=== PATIENT | male | born 1990 | race Caucasian/White ===

== ENCOUNTER 2018-02-16 19:19 | Emergency (ER) | payer BC, OTHER ==
--- NOTE | 2018-02-16 20:06 | EDM.PDOC ---
ED HPI GENERAL MEDICAL PROBLEM - General Chief Complaint: Upper Extremity Injury/Pain Stated Complaint: LEFT HAND POSSIBLY BROKEN RT HAND PLAYING SOFTBALL Time Seen by Provider: 02/16/18 20:06 - History of Present Illness INITIAL COMMENTS - FREE TEXT/NARRATIVE: 27-year-old male returns emergency room with a injured left hand. Shortly before arrival patient was playing softball and tried to use his left hand to block a rolling ball his hand folded backwards he developed sudden onset hand pain and he did not stop the ball. His hand is tender to use and is started to swell up patient denies any other injury with this incident. Left Hand Pain Score (Numeric/FACES): 7 - Related Data Allergies Allergy/AdvReac Type Severity Reaction Status Date / Time Penicillins Allergy Cannot Verified 02/16/18 19:46 Remember Home Meds: Home Meds valACYclovir [Valtrex] 500 mg PO DAILY 02/16/18 [History] Past Medical History - Past Health History Medical/Surgical History: Denies Medical/Surgical History Social & Family History - Tobacco Use Smoking Status *Q: Never Smoker - Caffeine Use Caffeine Use: Reports: Coffee, Soda, Tea - Recreational Drug Use Recreational Drug Use: No Review of Systems - Review of Systems Review Of Systems: See Below Respiratory: Reports: No Symptoms Cardiovascular: Reports: No Symptoms GI/Abdominal: Reports: No Symptoms ED EXAM, GENERAL - Physical Exam Exam: See Below Exam Limited By: No Limitations General Appearance: Alert, No Apparent Distress Neck: Normal Inspection, Supple, Non-Tender, Full Range of Motion Respiratory/Chest: No Respiratory Distress, Lungs Clear, Normal Breath Sounds Cardiovascular: Normal Peripheral Pulses, Regular Rate, Rhythm, No Edema, No Murmur Extremities: Other (Patient is left-hand show some dorsal swelling over the dorsum of the hand his digits are grossly intact motion of the ring finger and to a lesser degree the patient finger is very uncomfortable. Patient has good range of motion of the wrist except for a causes pain in the hand no snuffbox tenderness. Neurovascular status otherwise intact) Course - Vital Signs Last Recorded V/S: Last Vital Signs Temp 36.7 C 02/16/18 19:43 Pulse 82 02/16/18 19:43 Resp 20 02/16/18 19:43 BP 109/64 02/16/18 19:43 Pulse Ox 96 02/16/18 19:43 - Orders/Labs/Meds Orders: Active Orders 24 hr Category Date Time Status Hand Comp Min 3V Lt [CR] Stat Exams 02/16/18 20:15 Taken - Re-Assessments/Exams Free Text/Narrative Re-Assessment/Exam: 02/17/18 00:01 X-ray of the hand shows a fourth ray metacarpal spiral fracture with mild degree of shortening fairly good alignment case discussed with Dr. Canseco: He recommends splinting with the metacarpal phalangeal joint to 90 the wrist at 45 . I did apply this short arm splint patient is much more comfortable. He will follow-up with local orthopedics this next week Departure - Departure Time of Disposition: 00:02 Disposition: Home, Self-Care 01 Clinical Impression: Fracture, metacarpal shaft - Discharge Information Instructions: Metacarpal Fracture, [id number], Cast or Splint Care, Adult Referrals: Nestor Segura Jr, MD [Primary Care Provider] - Forms: ED Department Discharge Additional Instructions: Return to the emergency room with any questions problems worsening symptoms. Follow-up with Dr. Rudolph today this next week Tuesday or Tuesday [phone] Tylenol or Motrin as needed for discomfort. Keep her arm elevated as much as tolerated ice as needed - My Orders Last 24 Hours: My Active Orders 02/16/18 20:15 Hand Comp Min 3V Lt [CR] Stat - Assessment/Plan Last 24 Hours: My Active Orders 02/16/18 20:15 Hand Comp Min 3V Lt [CR] Stat
--- NOTE | 2018-02-17 10:44 | CR ---
Left hand: Four views of the left hand were obtained. Comparison: No prior study. Fracture is identified within the mid and proximal shaft of the fourth metacarpal. There appears to be articular extension proximally. Minimal displacement is seen. Soft tissue swelling is identified. No additional fracture or other abnormality is identified. Impression: 1. Slightly displaced fracture within the fourth metacarpal as described above. 2. Soft tissue swelling. Diagnostic code #3
== END 2018-02-17 00:09 | disposition home or self-care (01) ==
LOC: JD.ED 19:19
DX: S62.325A Displaced fracture of shaft of fourth metacarpal bone, left hand, initial encounter for closed fracture (principal); Z88.0 Allergy status to penicillin; X58.XXXA Exposure to other specified factors, initial encounter
CPT/HCPCS: 29125; 73130-26-LT; 73130-LT; 99283-25

== ENCOUNTER 2021-07-10 17:52 | Emergency (ER) | payer OTHER ==
--- NOTE | 2021-07-10 19:23 | EDM.PDOC ---
ED HPI GENERAL MEDICAL PROBLEM - General Chief Complaint: Lower Extremity Injury/Pain Stated Complaint: RIGHT ANKLE INJURY Time Seen by Provider: 07/10/21 19:06 Source of Information: Reports: Patient, RN Notes Reviewed - History of Present Illness INITIAL COMMENTS - FREE TEXT/NARRATIVE: 30 yr old male comes in with injury to R foot and ankle. Inversion a short time ago. Pain with wt bearing. Feels OK at rest. Right Ankle Pain Score (Numeric/FACES): 6 - Related Data Allergies Allergy/AdvReac Type Severity Reaction Status Date / Time Penicillins Allergy Cannot Verified 07/10/21 19:11 Remember Home Meds: Home Meds Omeprazole 40 mg PO DAILY 07/10/21 [History] Past Medical History - Past Health History Medical/Surgical History: Denies Medical/Surgical History Gastrointestinal History: Reports: GERD - Infectious Disease History Infectious Disease History: Reports: Novel Coronavirus Social & Family History - Family History Family Medical History: No Pertinent Family History - Tobacco Use Tobacco Use Status *Q: Never Tobacco User Second Hand Smoke Exposure: No - Caffeine Use Caffeine Use: Reports: None - Recreational Drug Use Recreational Drug Use: No Review of Systems - Review of Systems Review Of Systems: See Below Constitutional: Reports: No Symptoms Respiratory: Reports: No Symptoms Cardiovascular: Reports: No Symptoms Musculoskeletal: Reports: Joint Pain Skin: Reports: No Symptoms Neurological: Reports: No Symptoms ED EXAM, GENERAL - Physical Exam Exam: See Below General Appearance: Alert, No Apparent Distress Respiratory/Chest: No Respiratory Distress Extremities: Joint Swelling (tenderness R lateral ankle, medial ankle nontender, swelling and tenderness R proximal, lateral foot), Other (no deformity) Neurological: Alert, Oriented, No Motor/Sensory Deficits Skin Exam: Warm, Dry, Normal Color ED TRAUMA EXTREMITY PROCEDURES - Splinting Right Lower Extremity Splint Site: R short leg Pre-Procedure NV Status: Normal Post-Procedure NV Status: Normal Splint Material: Fiberglass Splint Design: Posterior Applied & Form Fitted By: Provider Provider Post-Splint Application NV Check: NV Status Normal Course - Vital Signs Last Recorded V/S: Last Vital Signs Temp 98.0 F 07/10/21 19:05 Pulse 72 07/10/21 19:05 Resp 16 07/10/21 19:05 BP 142/89 H 07/10/21 19:05 Pulse Ox 98 07/10/21 19:05 - Orders/Labs/Meds Orders: Active Orders 24 hr Category Date Time Status Durable Medical Equipment for Discharge [DME for Oth 07/10/21 19:57 Ordered Discharge] [COMM] Stat - Re-Assessments/Exams Free Text/Narrative Re-Assessment/Exam: 07/10/21 20:38 X rays show small fx base of 5th metatarsal with very mild displacement. Departure - Departure Time of Disposition: 20:45 Disposition: Home, Self-Care 01 Condition: Fair Clinical Impression: Metatarsal fracture Qualifiers: Encounter type: initial encounter Metatarsal bone: fifth Fracture type: closed Fracture alignment: displaced Laterality: right Qualified Code(s): S92.351A - Displaced fracture of fifth metatarsal bone, right foot, initial encounter for closed fracture - Discharge Information Instructions: Metatarsal Fracture Referrals: PCP,None [Primary Care Provider] - Forms: ED Department Discharge Additional Instructions: Fiberglass splint. Ice packs and elevation for swelling. Crutches, no weight bearing for now. Alternate tylenol or ibuprofen as needed. See Dr Rudolph Orthopedist next week, call [phone] for appointment. Sepsis Event Note (ED) - Evaluation Sepsis Screening Result: No Definite Risk - Focused Exam Vital Signs: Vital Signs Temp Pulse Resp BP Pulse Ox 07/10/21 19:05 98.0 F 72 16 142/89 H 98 - My Orders Last 24 Hours: My Active Orders 07/10/21 19:57 Durable Medical Equipment for Discharge [DME for Discharge] [COMM] Stat - Assessment/Plan Last 24 Hours: My Active Orders 07/10/21 19:57 Durable Medical Equipment for Discharge [DME for Discharge] [COMM] Stat
--- NOTE | 2021-07-10 20:05 | CR ---
Right foot: 4 views of the right foot were obtained. Comparison: No prior foot exam is available. Small fracture is seen within the base of the fifth metatarsal. Minimal displacement is noted. Joint spaces are preserved. Soft tissue swelling is present. Impression: 1. Small fracture involving the base of the fifth metatarsal. 2. Soft tissue swelling. Diagnostic code #3
--- NOTE | 2021-07-10 20:05 | CR ---
Right ankle: 4 views of the right ankle were obtained. Comparison: No prior ankle study is available. Ankle mortise is symmetric. Mild soft tissue swelling is noted. Small fracture is noted off the base of the fifth metatarsal which is slightly displaced. No additional fracture or other bony abnormality is appreciated. Impression: 1. Soft tissue swelling. 2. Small fracture involving the base of the fifth metatarsal which is mildly displaced. 3. No additional abnormality is appreciated within the right ankle. Diagnostic code #3
== END 2021-07-10 21:00 | disposition home or self-care (01) ==
LOC: JD.ED 17:52
DX: S92.351A Displaced fracture of fifth metatarsal bone, right foot, initial encounter for closed fracture (principal); K21.9 Gastro-esophageal reflux disease without esophagitis; Z79.899 Other long term (current) drug therapy; Z88.0 Allergy status to penicillin; X50.1XXA Overexertion from prolonged static or awkward postures, initial encounter
CPT/HCPCS: 29515; 73610-26-RT; 73610-RT; 73630-26-RT; 73630-RT; 99283-25